=== PATIENT | male | born 1980 | race Caucasian/White ===

== ENCOUNTER 2019-05-25 13:13 | Emergency (ER) | payer BC ==
[2019-05-25 13:19] VITALS: TEMP 97.8
--- NOTE | 2019-05-25 13:37 | ED ---
General Adult HPI - General Chief complaint: Syncope Stated complaint: syncope Time Seen by Provider: 05/25/19 13:20 Source: patient, RN notes reviewed, old records reviewed Mode of arrival: wheelchair Limitations: no limitations - History of Present Illness Initial comments: 39-year-old male presents for evaluation of syncope. Patient is 2 weeks postop open-heart surgery with aortic aneurysm repair and aortic valve repair. Patient is currently on metoprolol, Lasix, amiodarone. He states he had slept in 2 hours extra today. He woke up and took a hot shower. Shortly after his hot shower he was sitting on the toilet, felt lightheaded and passed out for approximately one or 2 minutes. He had called his into the room prior to passing out and had no reported injury or if he had taken his medications prior to arrival which included metoprolol and amiodarone. He has no complaints at the time my evaluation. Patient did contact [facility] cardiothoracic team who requested that the patient be evaluated. Patient denies vomiting or diarrhea. Denies chest pain, denies dyspnea, denies fever, states he did have some low-grade fevers in the early postoperative period. Denies abdominal pain. Denies lower extremity swelling. States he is doing quite well after his surgery. - Related Data Home Medications Medication Instructions Recorded Confirmed Acetaminophen [Tylenol Extra 500 - 1,000 mg PO Q6HR PRN 05/25/19 05/25/19 Strength] Amiodarone [Cordarone] 200 mg PO BID 05/25/19 05/25/19 Aspirin EC [Ecotrin Low Dose] 81 mg PO DAILY 05/25/19 05/25/19 Calcium Carbonate [Tums] 500 mg PO TID PRN 05/25/19 05/25/19 Furosemide [Lasix] 40 mg PO DAILY 05/25/19 05/25/19 Magnesium Oxide 400 mg PO BID 05/25/19 05/25/19 Metoprolol Tartrate 25 mg PO BID 05/25/19 05/25/19 Multivitamins, Thera [Multivitamin 1 tab PO DAILY 05/25/19 05/25/19 (formulary)] Omeprazole 20 mg PO DAILY 05/25/19 05/25/19 Potassium Chloride ER [K-Dur 20] 20 meq PO DAILY 05/25/19 05/25/19 Allergies Allergy/AdvReac Type Severity Reaction Status Date / Time No Known Allergies Allergy Verified 05/25/19 13:47 Review of Systems ROS Statement: Those systems with pertinent positive or pertinent negative responses have been documented in the HPI. ROS Other: All systems not noted in ROS Statement are negative. Past Medical History History of Any Multi-Drug Resistant Organisms: None Reported Additional Past Surgical History / Comment(s): heart surgery Past Psychological History: No Psychological Hx Reported Smoking Status: Former smoker Past Alcohol Use History: None Reported Past Drug Use History: None Reported General Exam Limitations: no limitations General appearance: alert, in no apparent distress Head exam: Present: atraumatic, normocephalic Eye exam: Present: normal appearance, PERRL ENT exam: Present: normal exam Neck exam: Present: normal inspection. Absent: tenderness, meningismus Respiratory exam: Present: normal lung sounds bilaterally, other (Midline sternotomy Incision is well-healed, clean dry and intact.). Absent: respiratory distress Cardiovascular Exam: Present: regular rate, normal rhythm, systolic murmur GI/Abdominal exam: Present: soft. Absent: distended, tenderness, guarding Extremities exam: Present: normal inspection, normal capillary refill. Absent: pedal edema, calf tenderness Neurological exam: Present: alert, oriented X3, CN II-XII intact. Absent: motor sensory deficit Psychiatric exam: Present: normal affect, normal mood Skin exam: Present: warm, dry, intact. Absent: cyanosis, diaphoretic Course Vital Signs 05/25/19 13:15 Temperature 97.8 F Pulse Rate 66 Respiratory 18 Rate Blood Pressure 135/74 O2 Sat by Pulse 99 Oximetry EKG Findings - EKG Comments: EKG Findings:: Normal sinus rhythm, T-wave inversion in the lateral precordial leads, V4, V5, V6. No ST segment elevation or depression. QRS is 112 ms, KS interval 206, ventricular rate of 64, QTC 408 Medical Decision Making - Medical Decision Making 39-year-old male with syncopal episode after taking a shower. 2 weeks postop thoracic aneurysm repair. Patient well-appearing with no complaints, stable vitals, sinus rhythm on EKG. Workup reveals a normal white blood cell count, stable hemoglobin at 11.9. Patient has mild thrombocytosis no baseline for comparison. He has normal electrolytes, normal kidney function. Troponin mildly elevated 0.083 in the setting of recent cardiac surgery. I did discuss case with his cardiothoracic surgeon Dr. Castañeda, at [facility]. Reviewed the case, presentation, and findings. [place] to be stable for discharge with close outpatient follow-up. Patient will maintain oral hydration, continue medications as prescribed. Return with worsening or changing symptoms. - Lab Data Result diagrams: 05/25/19 13:37 05/25/19 13:37 Lab Results 05/25/19 05/25/19 05/25/19 Range/Units 13:37 13:37 13:37 WBC 9.2 (3.8-10.6) k/uL RBC 4.24 L (4.30-5.90) m/uL Hgb 11.9 L (13.0-17.5) gm/dL Hct 37.5 L (39.0-53.0) % MCV 88.6 (80.0-100.0) fL MCH 28.1 (25.0-35.0) pg MCHC 31.7 (31.0-37.0) g/dL RDW 14.5 (11.5-15.5) % Plt Count 787 H (150-450) k/uL Neutrophils % 83 % Lymphocytes % 9 % Monocytes % 6 % Eosinophils % 1 % Basophils % 0 % Neutrophils # 7.6 (1.3-7.7) k/uL Lymphocytes # 0.8 L (1.0-4.8) k/uL Monocytes # 0.5 (0-1.0) k/uL Eosinophils # 0.1 (0-0.7) k/uL Basophils # 0.0 (0-0.2) k/uL Hypochromasia Slight PT 12.6 H (9.0-12.0) sec INR 1.3 H (<1.2) APTT 28.9 (22.0-30.0) sec Sodium 137 (137-145) mmol/L Potassium 4.4 (3.5-5.1) mmol/L Chloride 102 (98-107) mmol/L Carbon Dioxide 28 (22-30) mmol/L Anion Gap 7 mmol/L BUN 13 (9-20) mg/dL Creatinine 0.86 (0.66-1.25) mg/dL Est GFR (CKD-EPI)AfAm >90 (>60 ml/min/1.73 sqM) Est GFR (CKD-EPI)NonAf >90 (>60 ml/min/1.73 sqM) Glucose 173 H (74-99) mg/dL Calcium 9.3 (8.4-10.2) mg/dL Magnesium 2.0 (1.6-2.3) mg/dL Total Bilirubin 0.4 (0.2-1.3) mg/dL AST 51 (17-59) U/L ALT 81 H (4-49) U/L Alkaline Phosphatase 99 (38-126) U/L Troponin I (0.000-0.034) ng/mL Total Protein 7.1 (6.3-8.2) g/dL Albumin 3.9 (3.5-5.0) g/dL 05/25/19 Range/Units 13:37 WBC (3.8-10.6) k/uL RBC (4.30-5.90) m/uL Hgb (13.0-17.5) gm/dL Hct (39.0-53.0) % MCV (80.0-100.0) fL MCH (25.0-35.0) pg MCHC (31.0-37.0) g/dL RDW (11.5-15.5) % Plt Count (150-450) k/uL Neutrophils % % Lymphocytes % % Monocytes % % Eosinophils % % Basophils % % Neutrophils # (1.3-7.7) k/uL Lymphocytes # (1.0-4.8) k/uL Monocytes # (0-1.0) k/uL Eosinophils # (0-0.7) k/uL Basophils # (0-0.2) k/uL Hypochromasia PT (9.0-12.0) sec INR (<1.2) APTT (22.0-30.0) sec Sodium (137-145) mmol/L Potassium (3.5-5.1) mmol/L Chloride (98-107) mmol/L Carbon Dioxide (22-30) mmol/L Anion Gap mmol/L BUN (9-20) mg/dL Creatinine (0.66-1.25) mg/dL Est GFR (CKD-EPI)AfAm (>60 ml/min/1.73 sqM) Est GFR (CKD-EPI)NonAf (>60 ml/min/1.73 sqM) Glucose (74-99) mg/dL Calcium (8.4-10.2) mg/dL Magnesium (1.6-2.3) mg/dL Total Bilirubin (0.2-1.3) mg/dL AST (17-59) U/L ALT (4-49) U/L Alkaline Phosphatase (38-126) U/L Troponin I 0.083 H* (0.000-0.034) ng/mL Total Protein (6.3-8.2) g/dL Albumin (3.5-5.0) g/dL Disposition Clinical Impression: Syncope, Thoracic aortic aneurysm Disposition: HOME SELF-CARE Condition: Good Instructions (If sedation given, give patient instructions): Syncope (ED) Additional Instructions: Please follow up with your cardiothoracic surgeon, please return with any worsening or changing symptoms. Is patient prescribed a controlled substance at d/c from ED?: No Referrals: Bev Christensen DO [Primary Care Provider] - 1-2 days Time of Disposition: 15:01
[2019-05-25 13:51] LABS: Basophils % (A) 0 %; Eosinophils # (A) 0.1 k/uL (0-0.7); Eosinophils % (A) 1 %; HCT 37.5 % (39.0-53.0); HGB 11.9 gm/dL (13.0-17.5); Hypochromasia Slight; Lymphocytes # (A) 0.8 k/uL (1.0-4.8); Lymphocytes % (A) 9 %; MCH 28.1 pg (25.0-35.0); MCHC 31.7 g/dL (31.0-37.0); MCV 88.6 fL (80.0-100.0); Mean Platelet Volume 7.3; Monocytes # (A) 0.5 k/uL (0-1.0); Monocytes % (A) 6 %; Neutrophils # (A) 7.6 k/uL (1.3-7.7); Neutrophils % (A) 83 %; Platelet Count 787 k/uL (150-450); RBC 4.24 m/uL (4.30-5.90); RDW 14.5 % (11.5-15.5); WBC 9.2 k/uL (3.8-10.6)
[2019-05-25 14:00] LABS: INR 1.3 (<1.2); Partial Thromboplastin Time 28.9 sec (22.0-30.0); Prothrombin Time 12.6 sec (9.0-12.0)
--- NOTE | 2019-05-25 14:00 | XR ---
EXAMINATION TYPE: XR chest 2V DATE OF EXAM: 05/25/2019 HISTORY: syncope. REFERENCE: Previous study dated 06/02/2011. . FINDINGS: There is been a previous midline sternotomy. The heart is mildly enlarged. The lungs are clear. Pleural spaces are clear. IMPRESSION: 1. POSTSURGICAL CHANGE. 2. MILD CARDIOMEGALY.
[2019-05-25 14:03] LABS: ALT 81 U/L (4-49); AST 51 U/L (17-59); African American GFR (CKD) >90 (>60 ml/min/1.73 sqM); Albumin 3.9 g/dL (3.5-5.0); Alkaline Phosphatase 99 U/L (38-126); Anion Gap 7 mmol/L; Blood Urea Nitrogen 13 mg/dL (9-20); Calcium 9.3 mg/dL (8.4-10.2); Carbon Dioxide 28 mmol/L (22-30); Chloride 102 mmol/L (98-107); Glucose 173 mg/dL (74-99); Non-African American GFR(CKD) >90 (>60 ml/min/1.73 sqM); Potassium 4.4 mmol/L (3.5-5.1); Sodium 137 mmol/L (137-145); Total Bilirubin 0.4 mg/dL (0.2-1.3); Total Protein 7.1 g/dL (6.3-8.2)
[2019-05-25 15:06] VITALS: BP 141/79; PULSE 78; RESP 16
== END 2019-05-25 15:05 | disposition home or self-care (01) ==
LOC: EC 13:13
DX: R55 Syncope and collapse (principal); I71.2 Thoracic aortic aneurysm, without rupture; D47.3 Essential (hemorrhagic) thrombocythemia; Z98.890 Other specified postprocedural states; Z87.891 Personal history of nicotine dependence; Z79.82 Long term (current) use of aspirin; Z79.899 Other long term (current) drug therapy
CPT/HCPCS: 36415; 71046; 80053; 83735; 84484; 85025; 85610; 85730; 93005; 99284